=== PATIENT | female | born 1980 | race Caucasian/White ===

== ENCOUNTER 2019-10-29 11:01 | Inpatient (IN) | payer OTHER ==
--- NOTE | 2019-10-29 12:04 | BHS.RME ---
Substance Use & Tx History - Substance Use History OxyContin Substance amount: 5 mg four tabs Frequency of use: Daily Substance route: Oral Date of Last Use: 10/29/19 (9am) Nicotine Substance amount: 1/2 pack Frequency of use: Daily Substance route: Smoking Date of Last Use: 10/29/19 Physical/Psych/Mental Status - Behavior General Behavior: Increased activity (restlessness, agitation) Eye Contact: Normal - Cooperativeness Cooperativeness: Cooperative - Thinking Thought Processes: Tight, Logical, Goal Directed - Physical Health Problems Is patient presently having any pain?: No Does patient presently have any injuries (include location): No Does patient currently have a fever: No Is patient : No COWS - Scale Resting Pulse: 1= [place] 81-100 Sweatin= No chills or Flushing Restless Observation: 1= Difficult to Sit Still Pupil Size: 1= Pupils >than Normal Bone or Joint Aches: 4=Acute Joint/Muscle Pain Runny Nose/ Eye Tearin= Runny Nose/Eyes GI Upset > 30mins: 1= Stomach Cramp Tremor Observation: 1= Tremor [place], Not Seen Yawning Observation: 1= 1-2x During Session Anxiety or Irritability: 2=Irritable/Anxious Goose Flesh Skin: 0=Smooth Skin COWS Score: 14
[2019-10-29 12:45] VITALS: BMI 27.7
--- NOTE | 2019-10-29 12:45 | HP ---
COWS - Scale Resting Pulse: 1= [place] 81-100 Sweatin= No chills or Flushing Restless Observation: 1= Difficult to Sit Still Pupil Size: 1= Pupils >than Normal Bone or Joint Aches: 4=Acute Joint/Muscle Pain Runny Nose/ Eye Tearin= Runny Nose/Eyes GI Upset > 30mins: 1= Stomach Cramp Tremor Observation: 1= Tremor [place], Not Seen Yawning Observation: 1= 1-2x During Session Anxiety or Irritability: 2=Irritable/Anxious Goose Flesh Skin: 0=Smooth Skin COWS Score: 14 CIWA Score - Admission Criteria OASAS Guidelines: Admission for Medically Managed Detox: Requires at least one of the followin. CIWA greater than 12 2. Seizures within the past 24 hours 3. Delirium tremens within the past 24 hours 4. Hallucinations within the past 24 hours 5. Acute intervention needed for co occurring medical disorder 6. Acute intervention needed for co occurring psychiatric disorder 7. Severe withdrawal that cannot be handled at a lower level of care (continued vomiting, continued diarrhea, abnormal vital signs) requiring intravenous medication and/or fluids 8. Admitting History and Physical - Admission Chief Complaint: " I have to stop using oxycodone. My psychiatrist recommended that i go to detox. and then follow up with a suboxone program." History of Present Illness: 38 year old female with history of oral opioid dependence with withdrawal seeking detox. She wants to then follow up in a suboxone program but is ready to detox first. She initially became dependent due to prescribed oral opioids but started illicit use of larger doses at age 34. She was abusing Vicodin 61=683 daily 5 tabs a day before being prescribed oxycodone now for 1.5 years. Substance Use & Tx History - Substance Use History OxyContin Substance amount: 5 mg four tabs Frequency of use: Daily Substance route: Oral Date of Last Use: 10/29/19 (9am) Nicotine Substance amount: 1/2 pack Frequency of use: Daily Substance route: Smoking Date of Last Use: 10/29/19 PMH: None Psurg: Back Surgery Dissectomy due to herniated disc Psych: Anxiety on Lexapro 20 mg daily Living with mother and has no legal issues. She meets criteria for detox as she has increased tolerance and is at high risk to transition to larger doses of opioids and is at high risk for overdose. She has never detoxed before and has psychiatric co-morbidity. COWS=14 Urine Tox: + MOP OXY BZO denies using benzodiazepines History Source: Patient Limitations to Obtaining History: No Limitations - Past Medical History Psych: Yes: Anxiety - Past Surgical History Additional Past Surgical History: Dissectomy - Smoking History Smoking history: Current every day smoker Have you smoked in the past 12 months: Yes Aproximately how many cigarettes per day: 14 - Alcohol/Substance Use Hx Alcohol Use: No History of Substance Use: reports: Prescription Date of Last Use: 10/29/19 Admission ROS S - [facility] Allergies/Adverse Reactions: Allergies Allergy/AdvReac Type Severity Reaction Status Date / Time No Known Allergies Allergy Verified 10/29/19 12:33 Exam Limitations: No Limitations - Ebola screening Have you traveled outside of the country in the last 21 days: No Have you had contact with anyone from an Ebola affected area: No Have you been sick,other than usual withdrawal symptoms: No Do you have a fever: No - Review of Systems Constitutional: Chills EENT: reports: No Symptoms Reported Respiratory: reports: No Symptoms reported Cardiac: reports: No Symptoms Reported GI: reports: No Symptoms Reported : reports: No Symptoms Reported Musculoskeletal: reports: Back Pain Integumentary: reports: No Symptoms Reported Neuro: reports: No Symptoms reported Endocrine: reports: No Symptoms Reported Hematology: reports: No Symptoms Reported Psychiatric: reports: Judgement Intact, Mood/Affect Appropiate, Orientated x3, Agitated, Anxious Other Systems: Reviewed and Negative Patient History - Patient Medical History Hx Anemia: No Hx Asthma: No Hx Chronic Obstructive Pulmonary Disease (COPD): No Hx Cardiac Disorders: No Hx Hypertension: No Hx Seizures: No Hx Diabetes: No Hx Gastrointestinal Disorders: No Hx Genitourinary Disorders: No Hx Sexually Transmitted Disorders: No Hx Renal Disease (ESRD): No Hx Depression: No Hx Suicide Attempt: No Hx Schizophrenia: No - Patient Surgical History Past Surgical History: Yes Hx Neurologic Surgery: No Hx Cataract Extraction: No Hx Cardiac Surgery: No Hx Lung Surgery: No Hx Breast Surgery: No Hx Breast Biopsy: No Hx Abdominal Surgery: No Hx Appendectomy: No Hx Cholecystectomy: No Hx Genitourinary Surgery: No Hx Section: No Hx Orthopedic Surgery: Yes Other Surgical History: BACK SURGERY Anesthesia Reaction: No - PPD History Previous Implant?: Yes Documented Results: Negative w/o proof Implanted On Prior R Admission?: No Date: 04/02/19 Results: negative PPD to be Administered?: Yes - Smoking Cessation Smoking history: Current every day smoker Have you smoked in the past 12 months: Yes Aproximately how many cigarettes per day: 14 Hx Chewing Tobacco Use: No Initiated information on smoking cessation: Yes 'Breaking Loose' booklet given: 10/29/19 - Substances abused Oxycontin Other (specify): 5mg tabs Substance route: Oral Frequency: Daily Amount used: 20mg Age of first use: 34 Date of last use: 10/29/19 Other Other (specify): Vicodin 10-325mg taabs Substance route: Oral Frequency: Daily Age of first use: 34 Date of last use: 09/24/19 Admission Physical Exam [facility] Physical General Appearance: Yes: No Apparent Distress, Nourished, Appropriately Dressed, Mild Distress, Irritable, Sweating, Anxious HEENTM: Yes: EOMI, Hearing grossly Normal, Normal ENT Inspection, Normocephalic, Normal Voice, JAKE, Pharynx Normal, Tm's normal Respiratory: Yes: Chest Non-Tender, Lungs Clear, Normal Breath Sounds, No Respiratory Distress, No Accessory Muscle Use Neck: Yes: No masses,lesions,Nodules, Supple, Trachea in good position Breast: Yes: Breast Exam Deferred Cardiology: Yes: Regular Rhythm, Regular Rate, S1, S2 Abdominal: Yes: Normal Bowel Sounds, Non Tender, Flat, Soft Genitourinary: Yes: Within Normal Limits Back: Yes: Normal Inspection Musculoskeletal: Yes: full range of Motion, Gait Steady, Pelvis Stable Extremities: Yes: Normal Capillary Refill, Normal Inspection, Normal Range of Motion, Non-Tender Neurological: Yes: making machine catcher II-XII NML intact, Fully Oriented, Alert, Motor Strength 5/5, Normal Mood/Affect, Normal Response Integumentary: Yes: Normal Color, Dry, Warm Lymphatic: Yes: Within Normal Limits - Diagnostic (1) Opioid dependence with withdrawal Current Visit: Yes Status: Acute (2) Chronic low back pain Current Visit: Yes Status: Acute (3) Anxiety disorder Current Visit: Yes Status: Acute Cleared for Admission [facility] - Detox or Rehab [facility] Level of Care: Medically Managed Detox Regimen/Protocol: Methadone Claeared for Rehab Admission: No Screened but not Admitted - Documentation of Visit Screened but not Admitted: No Breathalyzer - Breathalyzer Breathalyzer: 0 Vital Signs - Vital Signs Vital signs refused: No Temperature: 97.8 F Temperature source: Oral Pulse Rate: 100 Respiratory Rate: 19 Blood Pressure: 132/84 BP Location: Left Arm Blood Pressure position: Sitting - Height Height: 5 ft 7 in - Weight Weight: 177 lb Weight measurement method: Standing scale - BMI Body Mass Index (BMI): 27.7 - Bowel Function Bowel Movement: No Inpatient Rehab Admission - Rehab Decision to Admit Inpatient rehab admission?: No
[2019-10-29] MEDS ORDERED: MAGNESIUM HYDROX 2400MG/30ML ORAL SUSPENSION 30 ML CUP PO PRN (13:08)
[2019-10-29] MEDS ORDERED: ACETAMINOPHEN 325 MG TABLET (FP) PO PRN (13:08)
[2019-10-29] MEDS ORDERED: cloNIDine HCL 0.1 MG TABLET PO PRN (13:08)
[2019-10-29] MEDS ORDERED: MAG HYDROX/AL HYDROX/SIMETH 30 ML UNIT-DOSE CUP PO PRN (13:08)
[2019-10-29] MEDS ORDERED: MAGNESIUM CITRATE 300 ML BOTTLE PO PRN (13:08)
[2019-10-29] MEDS ORDERED: BISMUTH SUBSALICYLATE 524 MG/30 ML UD PO PRN (13:08)
[2019-10-29] MEDS ORDERED: MENTHOL/PHENOL 1 EACH UD MM PRN (13:08)
[2019-10-29] MEDS: hydrOXYzine PAMOATE 25 MG CAPSULE (FP) PO SCH ×3 (13:58→22:22)
[2019-10-29] MEDS ORDERED: NICOTINE POLACRILEX 2 MG GUM BUC PRN (14:00)
[2019-10-29] MEDS ORDERED: ONDANSETRON *ODT* 4 MG TABLET SL ONE (14:00)
[2019-10-29] MEDS ORDERED: METHADONE HCL 10 MG TABLET (FOR DETOX USE ONLY) PO ONE (14:00)
[2019-10-29] MEDS: PRENATAL VITAMINS W/ FOLIC ACID TABLET (FP) PO SCH (14:09)
[2019-10-29] MEDS: NICOTINE 7 MG/24 HOURS TOPICAL PATCH TD SCH (14:09)
[2019-10-29 16:01] LABS: HEMOGLOBIN 15.1 GM/dL (10.7-15.3); MCH 31.2 pg (25.7-33.7); MCHC 33.5 g/dl (32.0-36.0); MEAN CELL VOLUME 93.1 fl (80-96); MEAN PLT VOLUME 8.9 fl (7.5-11.1); PLATELET COUNT 331 K/MM3 (134-434); RBC 4.83 M/mm3 (3.60-5.2); RDW 13.6 % (11.6-15.6)
--- NOTE | 2019-10-29 16:02 | EKG ---
Test Reason : Blood Pressure : / mmHG Vent. Rate : 093 BPM Atrial Rate : 093 BPM P-R Int : 146 ms QRS Dur : 090 ms QT Int : 372 ms P-R-T Axes : 051 040 026 degrees QTc Int : 462 ms NORMAL SINUS RHYTHM NORMAL ECG NO PREVIOUS ECGS AVAILABLE Confirmed by QUE LUTHER MD ([id number]) on 10/29/2019 4:01:49 PM Referred By: Confirmed By:QUE LUTHER MD
[2019-10-29 16:13] LABS: ALBUMIN 4.2 g/dl (3.4-5.0); BILIRUBIN,TOTAL 0.8 mg/dL (0.2-1); CALCIUM 9.3 mg/dL (8.5-10.1); CREATININE 0.7 mg/dL (0.55-1.3); POTASSIUM 4.1 mmol/L (3.5-5.1); TOT PROT 7.9 g/dl (6.4-8.2)
[2019-10-29] MEDS: IBUPROFEN 400 MG TABLET (FP) PO PRN (18:39)
[2019-10-29] MEDS: MELATONIN 5 MG TABLETS PO SCH (22:22)
[2019-10-29] MEDS: THIAMINE HCL 100 MG TABLET (FP) PO SCH (22:22)
[2019-10-29] MEDS: METHOCARBAMOL 500 MG TABLET PO PRN (22:24)
[2019-10-30] MEDS: hydrOXYzine PAMOATE 25 MG CAPSULE (FP) PO SCH ×2 (05:43→10:04)
[2019-10-30] MEDS: IBUPROFEN 400 MG TABLET (FP) PO PRN ×3 (05:44→22:11)
[2019-10-30] MEDS ORDERED: METHADONE HCL 10 MG TABLET (FOR DETOX USE ONLY) ONE (09:12)
[2019-10-30] MEDS ORDERED: METHADONE HCL 5 MG TABLET (FOR DETOX USE ONLY) ONE (09:12)
[2019-10-30] MEDS ORDERED: METHADONE (DETOX) 20 MG, METHADONE (DETOX) 5 MG PO ONE (10:00)
[2019-10-30] MEDS: PRENATAL VITAMINS W/ FOLIC ACID TABLET (FP) PO SCH (10:05)
[2019-10-30] MEDS: NICOTINE 7 MG/24 HOURS TOPICAL PATCH TD SCH (10:05)
--- NOTE | 2019-10-30 10:19 | PN ---
S COWS - Scale Resting Pulse: 0= [place] 80 or Below Sweatin= No chills or Flushing Restless Observation: 0= Sits Still Pupil Size: 1= Pupils >than Normal Bone or Joint Aches: 2= Severe Diffuse Aches Runny Nose/ Eye Tearin= None GI Upset > 30mins: 2= Nausea/Diarrhea Tremor Observation of Outstretched Hands: 2= Slight Tremor Visible Yawning Observation: 0= None Anxiety or Irritability: 1=Feels Anxious/Irritable Goose Flesh Skin: 3=Piloe[place] COWS Score: 11 S Progress Note (SOAP) Subjective: 38 years old female was admitted on 10/29/19 for opiate withdrawal sx management treating with methaodne detox regiment anxiety tremor increase vistaril to 50 mg po muscle cramping robaxin 750mg po x 1 Objective: 10/30/19 10:18 Vital Signs - 24 hr 10/29/19 10/29/19 10/29/19 12:41 13:01 13:46 Temperature 97.8 F 97.8 F 98.6 F Pulse Rate 100 H 100 H 110 H Respiratory 19 19 20 Rate Blood Pressure 132/84 132/84 147/101 H O2 Sat by Pulse 99 Oximetry (%) 10/29/19 10/29/19 10/30/19 16:46 20:52 06:27 Temperature 98.2 F 98.4 F 97.1 F L Pulse Rate 85 63 55 L Respiratory 16 18 18 Rate Blood Pressure 131/82 98/58 L 96/66 O2 Sat by Pulse 97 96 Oximetry (%) 10/30/19 08:44 Temperature 99.1 F Pulse Rate 68 Respiratory 16 Rate Blood Pressure 114/74 O2 Sat by Pulse Oximetry (%) Laboratory Tests 10/29/19 10/29/19 10/29/19 12:53 13:10 13:10 WBC 11.0 H RBC 4.83 Hgb 15.1 Hct 45.0 MCV 93.1 MCH 31.2 MCHC 33.5 RDW 13.6 Plt Count 331 MPV 8.9 Sodium 134 L Potassium 4.1 Chloride 102 Carbon Dioxide 20 L Anion Gap 12 BUN 9.0 Creatinine 0.7 Est GFR (CKD-EPI)AfAm 129.19 Est GFR (CKD-EPI)NonAf 111.47 Random Glucose 87 Calcium 9.3 Total Bilirubin 0.8 AST 27 ALT 59 Alkaline Phosphatase 83 Total Protein 7.9 Albumin 4.2 POC Urine HCG, Qual Negative Syphilis Serology COVID-19 (CECE) 10/29/19 10/29/19 13:10 13:10 WBC RBC Hgb Hct MCV MCH MCHC RDW Plt Count MPV Sodium Potassium Chloride Carbon Dioxide Anion Gap BUN Creatinine Est GFR (CKD-EPI)AfAm Est GFR (CKD-EPI)NonAf Random Glucose Calcium Total Bilirubin AST ALT Alkaline Phosphatase Total Protein Albumin POC Urine HCG, Qual Syphilis Serology Non-reactive COVID-19 (CECE) Not detected lab noted wbc elevation 10/30/19 10:21 ua pending Assessment: 10/30/19 10:22 opiate withdrawal wbc elevatin Plan: methadone regiment ua pending
[2019-10-30] MEDS ORDERED: METHOCARBAMOL 750 MG TAB PO ONE (10:30)
[2019-10-30] MEDS: NICOTINE 21 MG/24 HOURS TOPICAL PATCH TD SCH (11:36)
--- NOTE | 2019-10-30 12:03 | CONSULT ---
[facility] Psychiatric Consult - Data Date of interview: 10/30/19 Admission source: [facility] Identifying data: Patient is a 38 year old engaged female, without children, unemployed, domiciled, and is supported with unemployment benefits. This is patient's first admission to detox at [facility]. Patient admitted to for opiate dependence. Substance Abuse History: Substance Use & Tx History. - Substance Use History. OxyContin. Substance amount: 5 mg four tabs. Frequency of use: Daily. Substance route: Oral. Date of Last Use: 10/29/19 (9am). Nicotine. Substance amount: 1/2 pack. Frequency of use: Daily. Substance route: Smoking. Date of Last Use: 10/29/19 Medical History: Dissectomy, back surgery Psychiatric History: Patient's first psychiatric contact was at 28 years of age after her ex-finance . She saw Dr. Douglas at the [facility] in [place] and was treated with lexapro. Diagnosis of MDD and Anxiety disorder. She continues to see the same physician today and is prescribed lexapro 20mg daily + Klonopin 0.5mg PRN once daily + Trazodone 200mg HS ( with an additional 200mg PRN for insomnia??). Ms. Carrasco denies history of p sychiatric hospitalizations and suicide attempt. At present, she reports stable mood. Physical/Sexual Abuse/Trauma History: denies. Mental Status Exam - Mental Status Exam Alert and Oriented to: Time, Place, Person Cognitive Function: Good Patient Appearance: Well Groomed Mood: Hopeful Affect: Appropriate Patient Behavior: Appropriate, Cooperative Speech Pattern: Appropriate Voice Loudness: Normal Thought Process: Goal Oriented Thought Disorder: Not Present Hallucinations: Denies Suicidal Ideation: Denies Homicidal Ideation: Denies Insight/Judgement: Poor Sleep: Fair Appetite: Fair Muscle strength/Tone: Normal Gait/Station: Normal Psychiatric Findings - Problem List (Platter 1, 2,3) (1) Anxiety disorder Current Visit: Yes Status: Chronic (2) Opioid dependence with withdrawal Current Visit: Yes Status: Acute (3) MDD (major depressive disorder) Current Visit: Yes Status: Chronic - Initial Treatment Plan Initial Treatment Plan: Psychoeducation provided. Detoxification in progress. Will order Lexapro 20mg daily + Trazodone 150mg HS ( reduced dosed). Benefits and side effects discussed. Verbal consent given.
[2019-10-30] MEDS ORDERED: ESCITALOPRAM OXALATE 10 MG TABLET ONE (13:09)
[2019-10-30] MEDS: ESCITALOPRAM OXALATE 20 MG TABLET PO SCH (13:10)
[2019-10-30] MEDS: hydrOXYzine PAMOATE 50 MG CAPSULE (FP) PO SCH ×2 (17:30→23:06)
[2019-10-30] MEDS: ACETAMINOPHEN 325 MG TABLET (FP) PO PRN (17:31)
[2019-10-30] MEDS: METHOCARBAMOL 500 MG TABLET PO PRN (22:11)
[2019-10-30] MEDS: THIAMINE HCL 100 MG TABLET (FP) PO SCH (22:12)
[2019-10-30] MEDS: MELATONIN 5 MG TABLETS PO SCH (22:12)
[2019-10-30] MEDS: traZODone HCL 50 MG TABLET (FP) PO SCH (23:06)
[2019-10-31] MEDS: hydrOXYzine PAMOATE 50 MG CAPSULE (FP) PO SCH ×3 (06:29→17:44)
[2019-10-31] MEDS: PRENATAL VITAMINS W/ FOLIC ACID TABLET (FP) PO SCH (09:11)
[2019-10-31] MEDS: ESCITALOPRAM OXALATE 20 MG TABLET PO SCH (09:11)
[2019-10-31] MEDS: NICOTINE 21 MG/24 HOURS TOPICAL PATCH TD SCH (09:11)
[2019-10-31] MEDS: IBUPROFEN 400 MG TABLET (FP) PO PRN (09:13)
[2019-10-31] MEDS ORDERED: METHADONE HCL 10 MG TABLET (FOR DETOX USE ONLY) PO ONE (10:00)
--- NOTE | 2019-10-31 11:21 | PN ---
BHS COWS - Scale Resting Pulse: 0= [place] 80 or Below Sweatin= Chills/Flushing Restless Observation: 0= Sits Still Pupil Size: 1= Pupils >than Normal Bone or Joint Aches: 2= Severe Diffuse Aches Runny Nose/ Eye Tearin= None GI Upset > 30mins: 1= Stomach Cramp Tremor Observation of Outstretched Hands: 2= Slight Tremor Visible Yawning Observation: 0= None Anxiety or Irritability: 1=Feels Anxious/Irritable Goose Flesh Skin: 0=Smooth Skin COWS Score: 8 BHS Progress Note (SOAP) Subjective: 38 years old female was admitted on 10/29/19 for opiate withdrawal sx management treating with methadone detox regiment feels ok today discussing medication assisted treatment program 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 Objective: 10/31/19 11:24 opiate withdrawal 10/31/19 11:24 Vital Signs - 24 hr 10/30/19 10/30/19 10/30/19 12:58 16:41 20:38 Temperature 96.8 F L 97.1 F L 96.9 F L Pulse Rate 77 70 64 Respiratory 18 18 18 Rate Blood Pressure 112/73 109/76 139/87 O2 Sat by Pulse 96 96 96 Oximetry (%) 10/31/19 10/31/19 06:00 08:44 Temperature 96.9 F L 98.2 F Pulse Rate 62 79 Respiratory 16 18 Rate Blood Pressure 97/65 133/83 O2 Sat by Pulse 95 Oximetry (%) Laboratory Tests 10/29/19 10/29/19 10/29/19 12:53 13:10 13:10 WBC 11.0 H RBC 4.83 Hgb 15.1 Hct 45.0 MCV 93.1 MCH 31.2 MCHC 33.5 RDW 13.6 Plt Count 331 MPV 8.9 Sodium 134 L Potassium 4.1 Chloride 102 Carbon Dioxide 20 L Anion Gap 12 BUN 9.0 Creatinine 0.7 Est GFR (CKD-EPI)AfAm 129.19 Est GFR (CKD-EPI)NonAf 111.47 Random Glucose 87 Calcium 9.3 Total Bilirubin 0.8 AST 27 ALT 59 Alkaline Phosphatase 83 Total Protein 7.9 Albumin 4.2 POC Urine HCG, Qual Negative Syphilis Serology COVID-19 (CECE) 10/29/19 10/29/19 13:10 13:10 WBC RBC Hgb Hct MCV MCH MCHC RDW Plt Count MPV Sodium Potassium Chloride Carbon Dioxide Anion Gap BUN Creatinine Est GFR (CKD-EPI)AfAm Est GFR (CKD-EPI)NonAf Random Glucose Calcium Total Bilirubin AST ALT Alkaline Phosphatase Total Protein Albumin POC Urine HCG, Qual Syphilis Serology Non-reactive COVID-19 (CECE) Not detected lab noted Assessment: 10/31/19 11:24 opiate withdrawal Plan: methadone regiment
[2019-10-31] MEDS: IBUPROFEN 600 MG TABLET (FP) PO PRN (17:44)
[2019-10-31] MEDS: METHOCARBAMOL 500 MG TABLET PO PRN (17:44)
[2019-10-31] MEDS: MELATONIN 5 MG TABLETS PO SCH (22:08)
[2019-10-31] MEDS: THIAMINE HCL 100 MG TABLET (FP) PO SCH (22:08)
[2019-10-31] MEDS: traZODone HCL 50 MG TABLET (FP) PO SCH (22:08)
[2019-10-31] MEDS: ACETAMINOPHEN 325 MG TABLET (FP) PO PRN (22:10)
[2019-11-01] MEDS: hydrOXYzine PAMOATE 50 MG CAPSULE (FP) PO SCH ×5 (00:24→23:28)
[2019-11-01] MEDS: IBUPROFEN 600 MG TABLET (FP) PO PRN ×3 (05:54→22:08)
[2019-11-01] MEDS: METHOCARBAMOL 500 MG TABLET PO PRN ×3 (05:55→22:07)
[2019-11-01] MEDS ORDERED: METHADONE HCL 10 MG TABLET (FOR DETOX USE ONLY) ONE (09:21)
[2019-11-01] MEDS ORDERED: METHADONE HCL 5 MG TABLET (FOR DETOX USE ONLY) ONE (09:22)
[2019-11-01] MEDS: PRENATAL VITAMINS W/ FOLIC ACID TABLET (FP) PO SCH (09:31)
[2019-11-01] MEDS: ESCITALOPRAM OXALATE 20 MG TABLET PO SCH (09:32)
[2019-11-01] MEDS: NICOTINE 21 MG/24 HOURS TOPICAL PATCH TD SCH (09:32)
[2019-11-01] MEDS ORDERED: METHADONE (DETOX) 10 MG, METHADONE (DETOX) 5 MG PO ONE (10:00)
--- NOTE | 2019-11-01 10:00 | PN ---
BHS COWS - Scale Resting Pulse: 0= [place] 80 or Below Sweatin= Chills/Flushing Restless Observation: 0= Sits Still Pupil Size: 1= Pupils >than Normal Bone or Joint Aches: 1= Mild Discomfort Runny Nose/ Eye Tearin= None GI Upset > 30mins: 1= Stomach Cramp Tremor Observation of Outstretched Hands: 1= Tremor [place], Not Seen Yawning Observation: 0= None Anxiety or Irritability: 1=Feels Anxious/Irritable Goose Flesh Skin: 0=Smooth Skin COWS Score: 6 BHS Progress Note (SOAP) Subjective: 38 years old female was admitted on 10/29/19 for opiate withdrawal sx management treating with methadone detox regiment encourage ms miner to consider medication assisted treatment program for opiate abuse 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 pharmacy upon discharged from detox recommend ms miner to discuss medication assisted treatment with [facility] or [facility] aftercare provider Objective: 11/01/19 09:59 Vital Signs - 24 hr 10/31/19 10/31/19 10/31/19 12:26 16:47 20:41 Temperature 98.8 F 97.3 F L 97.3 F L Pulse Rate 86 68 63 Respiratory 20 17 17 Rate Blood Pressure 105/72 100/65 101/64 O2 Sat by Pulse 97 95 Oximetry (%) 11/01/19 11/01/19 06:48 08:36 Temperature 97.0 F L 98.4 F Pulse Rate 65 74 Respiratory 18 18 Rate Blood Pressure 110/69 114/81 O2 Sat by Pulse 95 Oximetry (%) Laboratory Tests 10/29/19 10/29/19 10/29/19 12:53 13:10 13:10 WBC 11.0 H RBC 4.83 Hgb 15.1 Hct 45.0 MCV 93.1 MCH 31.2 MCHC 33.5 RDW 13.6 Plt Count 331 MPV 8.9 Sodium 134 L Potassium 4.1 Chloride 102 Carbon Dioxide 20 L Anion Gap 12 BUN 9.0 Creatinine 0.7 Est GFR (CKD-EPI)AfAm 129.19 Est GFR (CKD-EPI)NonAf 111.47 Random Glucose 87 Calcium 9.3 Total Bilirubin 0.8 AST 27 ALT 59 Alkaline Phosphatase 83 Total Protein 7.9 Albumin 4.2 POC Urine HCG, Qual Negative Syphilis Serology COVID-19 (CECE) 10/29/19 10/29/19 13:10 13:10 WBC RBC Hgb Hct MCV MCH MCHC RDW Plt Count MPV Sodium Potassium Chloride Carbon Dioxide Anion Gap BUN Creatinine Est GFR (CKD-EPI)AfAm Est GFR (CKD-EPI)NonAf Random Glucose Calcium Total Bilirubin AST ALT Alkaline Phosphatase Total Protein Albumin POC Urine HCG, Qual Syphilis Serology Non-reactive COVID-19 (CECE) Not detected lab noted Assessment: 11/01/19 10:00 opiate withdrawal Plan: methadone regiment
[2019-11-01] MEDS: ACETAMINOPHEN 325 MG TABLET (FP) PO PRN (17:23)
[2019-11-01 22:01] LABS: PH,URINE 6.5 (5.0-8.0); URINE APPEARANCE CLEAR; URINE BILIRUBIN NEGATIVE (NEGATIVE); URINE COLOR YELLOW; URINE GLUCOSE (UA) NEGATIVE (NEGATIVE); URINE KETONE NEGATIVE (NEGATIVE); URINE LEUK ESTERASE NEGATIVE (NEGATIVE); URINE NITRITE NEGATIVE (NEGATIVE); URINE PROTEIN NEGATIVE (NEGATIVE); URINE UROBILINOGEN 0.2 mg/dL (0.2-1.0)
[2019-11-01] MEDS: MELATONIN 5 MG TABLETS PO SCH (22:08)
[2019-11-01] MEDS: THIAMINE HCL 100 MG TABLET (FP) PO SCH (22:08)
[2019-11-01] MEDS: traZODone HCL 50 MG TABLET (FP) PO SCH (22:08)
[2019-11-02] MEDS: hydrOXYzine PAMOATE 50 MG CAPSULE (FP) PO SCH ×4 (06:01→23:15)
[2019-11-02] MEDS: NICOTINE 21 MG/24 HOURS TOPICAL PATCH TD SCH (09:34)
[2019-11-02] MEDS: ESCITALOPRAM OXALATE 20 MG TABLET PO SCH (09:34)
[2019-11-02] MEDS: PRENATAL VITAMINS W/ FOLIC ACID TABLET (FP) PO SCH (09:34)
[2019-11-02] MEDS: IBUPROFEN 600 MG TABLET (FP) PO PRN ×2 (09:36→17:30)
[2019-11-02] MEDS ORDERED: METHADONE HCL 10 MG TABLET (FOR DETOX USE ONLY) PO ONE (10:00)
--- NOTE | 2019-11-02 10:36 | PN ---
S COWS - Scale Resting Pulse: 0= [place] 80 or Below Sweatin= No chills or Flushing Restless Observation: 0= Sits Still Pupil Size: 0= Normal to Room Light Bone or Joint Aches: 1= Mild Discomfort Runny Nose/ Eye Tearin= None GI Upset > 30mins: 0= None Tremor Observation of Outstretched Hands: 0= None Yawning Observation: 0= None Anxiety or Irritability: 2=Irritable/Anxious Goose Flesh Skin: 0=Smooth Skin COWS Score: 3 BHS Progress Note (SOAP) Subjective: c/o mild withdrawal symptoms. Objective: 11/02/19 10:33 Vital Signs 11/02/19 11/02/19 07:04 08:50 Temperature 96.9 F L 97.1 F L Pulse Rate 62 74 Respiratory 18 18 Rate Blood Pressure 100/62 113/73 O2 Sat by Pulse 96 Oximetry (%) Laboratory Last Values WBC 11.0 K/mm3 (4.0-10.0) H 10/29/19 13:10 RBC 4.83 M/mm3 (3.60-5.2) 10/29/19 13:10 Hgb 15.1 GM/dL (10.7-15.3) 10/29/19 13:10 Hct 45.0 % (32.4-45.2) 10/29/19 13:10 MCV 93.1 fl (80-96) 10/29/19 13:10 MCH 31.2 pg (25.7-33.7) 10/29/19 13:10 MCHC 33.5 g/dl (32.0-36.0) 10/29/19 13:10 RDW 13.6 % (11.6-15.6) 10/29/19 13:10 Plt Count 331 K/MM3 (134-434) 10/29/19 13:10 MPV 8.9 fl (7.5-11.1) 10/29/19 13:10 Sodium 134 mmol/L (136-145) L 10/29/19 13:10 Potassium 4.1 mmol/L (3.5-5.1) 10/29/19 13:10 Chloride 102 mmol/L (98-107) 10/29/19 13:10 Carbon Dioxide 20 mmol/L (21-32) L 10/29/19 13:10 Anion Gap 12 MMOL/L (8-16) 10/29/19 13:10 BUN 9.0 mg/dL (7-18) 10/29/19 13:10 Creatinine 0.7 mg/dL (0.55-1.3) 10/29/19 13:10 Est GFR (CKD-EPI)AfAm 129.19 10/29/19 13:10 Est GFR (CKD-EPI)NonAf 111.47 10/29/19 13:10 Random Glucose 87 mg/dL (74-106) 10/29/19 13:10 Calcium 9.3 mg/dL (8.5-10.1) 10/29/19 13:10 Total Bilirubin 0.8 mg/dL (0.2-1) 10/29/19 13:10 AST 27 U/L (15-37) 10/29/19 13:10 ALT 59 U/L (13-61) 10/29/19 13:10 Alkaline Phosphatase 83 U/L (45-117) 10/29/19 13:10 Total Protein 7.9 g/dl (6.4-8.2) 10/29/19 13:10 Albumin 4.2 g/dl (3.4-5.0) 10/29/19 13:10 Urine Color Yellow 11/01/19 19:00 Urine Appearance Clear 11/01/19 19:00 Urine pH 6.5 (5.0-8.0) 11/01/19 19:00 Ur Specific [place] 1.023 (1.010-1.035) 11/01/19 19:00 Urine Protein Negative (NEGATIVE) 11/01/19 19:00 Urine Glucose (UA) Negative (NEGATIVE) 11/01/19 19:00 Urine Ketones Negative (NEGATIVE) 11/01/19 19:00 Urine Blood Negative (NEGATIVE) 11/01/19 19:00 Urine Nitrite Negative (NEGATIVE) 11/01/19 19:00 Urine Bilirubin Negative (NEGATIVE) 11/01/19 19:00 Urine Urobilinogen 0.2 mg/dL (0.2-1.0) 11/01/19 19:00 Ur Leukocyte Esterase Negative (NEGATIVE) 11/01/19 19:00 POC Urine HCG, Qual Negative 10/29/19 12:53 Syphilis Serology Non-reactive (NONREACTIVE) 10/29/19 13:10 COVID-19 (CECE) Not detected (Not Detected) 10/29/19 13:10 Labs noted. Assessment: 11/02/19 10:33 AOX3, in no acute respiratory distress. Full ROM, ambulating in the unit. Mild Withdrawal symptoms. For d/c tomorrow. Plan: continue detox. D/C in AM.
[2019-11-02] MEDS: METHOCARBAMOL 500 MG TABLET PO PRN ×2 (14:27→22:13)
[2019-11-02] MEDS: MELATONIN 5 MG TABLETS PO SCH (22:12)
[2019-11-02] MEDS: traZODone HCL 50 MG TABLET (FP) PO SCH (22:13)
[2019-11-02] MEDS: THIAMINE HCL 100 MG TABLET (FP) PO SCH (22:13)
[2019-11-03] MEDS: hydrOXYzine PAMOATE 50 MG CAPSULE (FP) PO SCH (05:48)
[2019-11-03] MEDS ORDERED: METHADONE HCL 5 MG TABLET (FOR DETOX USE ONLY) PO ONE (06:00)
[2019-11-03] MEDS: ESCITALOPRAM OXALATE 20 MG TABLET PO SCH (09:08)
[2019-11-03] MEDS: METHOCARBAMOL 500 MG TABLET PO PRN (09:08)
[2019-11-03] MEDS ORDERED: ESCITALOPRAM OXALATE 10 MG TABLET ONE (09:08)
[2019-11-03] MEDS: PRENATAL VITAMINS W/ FOLIC ACID TABLET (FP) PO SCH (09:09)
[2019-11-03] MEDS: NICOTINE 21 MG/24 HOURS TOPICAL PATCH TD SCH (09:09)
[2019-11-03 09:57] VITALS: BP 103/73; PULSE 95; TEMP 97.3
--- NOTE | 2019-11-03 13:02 | DS ---
[facility] Detox Discharge Summary Admission Date: 10/29/19 Discharge Date: 11/03/19 - History Present History: Opioid Dependence Additional Comments: Pt is medically cleared and discharged today. Pt completed the detox protocol. Pt is encouraged to follow-up with an outpatient CD program and also to follow- up with her pmd which she verbalized understanding. Pt is AOX3, in no acute respiratory distress, Full ROM, and ambulatory. Pertinent Past History: h/o opioid use disorder. - Physical Exam Results Vital Signs: Vital Signs Temperature 97.3 F L 11/03/19 08:43 Pulse Rate 95 H 11/03/19 08:43 Respiratory Rate 20 11/03/19 08:43 Blood Pressure 103/73 11/03/19 08:43 O2 Sat by Pulse Oximetry (%) 99 11/03/19 06:48 Vital Signs 11/03/19 11/03/19 06:48 08:43 Temperature 97.6 F 97.3 F L Pulse Rate 51 L 95 H Respiratory 18 20 Rate Blood Pressure 100/65 103/73 O2 Sat by Pulse 99 Oximetry (%) Laboratory Last Values WBC 11.0 K/mm3 (4.0-10.0) H 10/29/19 13:10 RBC 4.83 M/mm3 (3.60-5.2) 10/29/19 13:10 Hgb 15.1 GM/dL (10.7-15.3) 10/29/19 13:10 Hct 45.0 % (32.4-45.2) 10/29/19 13:10 MCV 93.1 fl (80-96) 10/29/19 13:10 MCH 31.2 pg (25.7-33.7) 10/29/19 13:10 MCHC 33.5 g/dl (32.0-36.0) 10/29/19 13:10 RDW 13.6 % (11.6-15.6) 10/29/19 13:10 Plt Count 331 K/MM3 (134-434) 10/29/19 13:10 MPV 8.9 fl (7.5-11.1) 10/29/19 13:10 Sodium 134 mmol/L (136-145) L 10/29/19 13:10 Potassium 4.1 mmol/L (3.5-5.1) 10/29/19 13:10 Chloride 102 mmol/L (98-107) 10/29/19 13:10 Carbon Dioxide 20 mmol/L (21-32) L 10/29/19 13:10 Anion Gap 12 MMOL/L (8-16) 10/29/19 13:10 BUN 9.0 mg/dL (7-18) 10/29/19 13:10 Creatinine 0.7 mg/dL (0.55-1.3) 10/29/19 13:10 Est GFR (CKD-EPI)AfAm 129.19 10/29/19 13:10 Est GFR (CKD-EPI)NonAf 111.47 10/29/19 13:10 Random Glucose 87 mg/dL (74-106) 10/29/19 13:10 Calcium 9.3 mg/dL (8.5-10.1) 10/29/19 13:10 Total Bilirubin 0.8 mg/dL (0.2-1) 10/29/19 13:10 AST 27 U/L (15-37) 10/29/19 13:10 ALT 59 U/L (13-61) 10/29/19 13:10 Alkaline Phosphatase 83 U/L (45-117) 10/29/19 13:10 Total Protein 7.9 g/dl (6.4-8.2) 10/29/19 13:10 Albumin 4.2 g/dl (3.4-5.0) 10/29/19 13:10 Urine Color Yellow 11/01/19 19:00 Urine Appearance Clear 11/01/19 19:00 Urine pH 6.5 (5.0-8.0) 11/01/19 19:00 Ur Specific [place] 1.023 (1.010-1.035) 11/01/19 19:00 Urine Protein Negative (NEGATIVE) 11/01/19 19:00 Urine Glucose (UA) Negative (NEGATIVE) 11/01/19 19:00 Urine Ketones Negative (NEGATIVE) 11/01/19 19:00 Urine Blood Negative (NEGATIVE) 11/01/19 19:00 Urine Nitrite Negative (NEGATIVE) 11/01/19 19:00 Urine Bilirubin Negative (NEGATIVE) 11/01/19 19:00 Urine Urobilinogen 0.2 mg/dL (0.2-1.0) 11/01/19 19:00 Ur Leukocyte Esterase Negative (NEGATIVE) 11/01/19 19:00 POC Urine HCG, Qual Negative 10/29/19 12:53 Syphilis Serology Non-reactive (NONREACTIVE) 10/29/19 13:10 COVID-19 (CECE) Not detected (Not Detected) 10/29/19 13:10 Labs noted. Pertinent Admission Physical Exam Findings: withdrawal symptoms. - Treatment Hospital Course: Detox Protocol Followed, Detoxed Safely, Responded well, Discharged Condition Good - Medication Discharge Medications: Ambulatory Orders Escitalopram Oxalate [Lexapro -] 20 mg PO DAILY 10/29/19 Oxycodone HCl [Roxicodone] 5 mg PO QID 10/29/19 clonazePAM [Klonopin -] 0.5 mg PO PRN PRN 10/29/19 traZODone HCL [Trazodone HCl] 150 mg PO HS 10/29/19 Naloxone HCl [Narcan] 4 mg NS ASDIR PRN #1 spray 10/31/19 - Diagnosis (1) Opioid use disorder Status: Chronic (2) Chronic low back pain Status: Chronic (3) Opioid dependence with withdrawal Status: Acute - AMA Did Patient Leave Against Medical Advice: No
== END 2019-11-03 11:19 | disposition other institution (70) | DRG 773 ==
LOC: EDSEX 11:01 → YASAS 11:01 → Y3N 13:05
PROVIDERS: ADMIT Allergy & Immunology; ATTEND Allergy & Immunology
PROC: HZ2ZZZZ Detoxification Services for Substance Abuse Treatment (ICD-10-PCS; principal; 2019-10-29)
DX: F11.23 Opioid dependence with withdrawal (principal); F17.210 Nicotine dependence, cigarettes, uncomplicated; F41.9 Anxiety disorder, unspecified; F32.9 Major depressive disorder, single episode, unspecified; M54.5 Low back pain; G89.29 Other chronic pain; D72.829 Elevated white blood cell count, unspecified; Z98.890 Other specified postprocedural states
CPT/HCPCS: 36415; 80053; 81003; 81025; 85027; 86780; 93005; 93010; J0735; Q0162; U0003